=== PATIENT | male | born 1960 | race Caucasian/White ===

== ENCOUNTER 2018-01-15 14:33 | Emergency (ER) | payer OTHER ==
[~2018-01-15] VITALS: Ht 167.6 cm; Wt 103.9 kg
[2018-01-15 14:45] VITALS: Ht 167.6 cm; Wt 103.9 kg
[2018-01-15 15:54] VITALS: BP 136/84
== END 2018-01-15 16:20 | disposition home or self-care (01) ==
LOC: ED 14:33
DX: H66.91 Otitis media, unspecified, right ear (principal); S20.219A Contusion of unspecified front wall of thorax, initial encounter; J02.9 Acute pharyngitis, unspecified; H10.9 Unspecified conjunctivitis; I10 Essential (primary) hypertension; F17.200 Nicotine dependence, unspecified, uncomplicated; Z88.0 Allergy status to penicillin; X58.XXXA Exposure to other specified factors, initial encounter; Y93.89 Activity, other specified; Y92.89 Other specified places as the place of occurrence of the external cause; Y99.8 Other external cause status
CPT/HCPCS: 99406; Q0092